=== PATIENT | female | born 1980 | race Two or more races ===

== ENCOUNTER 2021-12-19 09:17 | Outpatient (REF) | payer OTHER, SELFPAY ==
--- NOTE | ~2021-12-19 | XR_ITS ---
EXAMINATION: XR KNEE, LEFT CLINICAL INFORMATION: Pain COMPARISON: None TECHNIQUE: Three views of the left knee. FINDINGS: Bones and soft tissues are normal. No fracture or joint effusion. Alignment is anatomic. Joint spaces are well maintained. No abnormal soft tissue calcification. XR/XR knee LT 3V IMPRESSION: Normal left knee.
[2021-12-19 12:06] LABS: Rheumatoid Factor < 15.0 IU/mL (<15.0)
[2021-12-21 01:14] LABS: Lyme Abs Screen <0.90 index
[2021-12-21 17:36] LABS: Cyclic Citrullinated Peptide <16 UNITS
[2021-12-24 13:22] LABS: Anti DNA DS Antibody 1 IU/mL; Myeloperoxidase Antibody <1.0 AI; Proteinase 3 PR3 Antibodies <1.0 AI; SM/Ribonucleoprotein Ab <1.0 NEG AI (<1.0 NEG); Smith Protein <1.0 NEG AI (<1.0 NEG)
== END 2021-12-19 09:18 | disposition home or self-care (01) ==
LOC: HO.LAB 09:17
PROVIDERS: PCP Nurse Practitioner Adult Health; Visit Provider Internal Medicine Rheumatology
DX: R76.8 Other specified abnormal immunological findings in serum (principal); M25.562 Pain in left knee; R21 Rash and other nonspecific skin eruption; I73.00 Raynaud's syndrome without gangrene; L50.9 Urticaria, unspecified
CPT/HCPCS: 36415; 73562; 86021; 86200; 86225; 86235; 86431; 86617; 86618